=== PATIENT | female | born 1985 | race Hispanic/Latino ===

== ENCOUNTER 2019-02-06 20:05 | Emergency (ER) | payer SELFPAY ==
[2019-02-06] MEDS ORDERED: Ibuprofen 800 MG TAB ONE (21:28)
== END 2019-02-06 21:30 | disposition home or self-care (01) ==
LOC: ERS 20:05
DX: J06.9 Acute upper respiratory infection, unspecified (principal)

== ENCOUNTER 2020-08-10 16:40 | Emergency (ER) | payer SELFPAY ==
[2020-08-10] MEDS ORDERED: Metoclopramide HCl 10 MG/2 ML VIAL ONE (17:06)
[2020-08-10] MEDS ORDERED: diphenhydrAMINE 50 MG/ML VIAL ONE (17:06)
[2020-08-10] MEDS ORDERED: Metoclopramide 10 MG/10 ML UDCUP ONE (17:06)
[2020-08-10 21:45] LABS: SARS-CoV-2 PCR by NAA Not Detected (NotDetected)
== END 2020-08-10 20:19 | disposition home or self-care (01) ==
LOC: ERS 16:40
DX: B34.9 Viral infection, unspecified (principal); Z20.822 Contact with and (suspected) exposure to COVID-19
CPT/HCPCS: 70450; 87635; 96365; 96366; 96375; J1200; J2765; U0003; U0005

== ENCOUNTER 2021-10-28 23:41 | Emergency (ER) | payer SELFPAY ==
[2021-10-29] MEDS ORDERED: diphenhydrAMINE 50 MG/ML VIAL ONE (01:53)
[2021-10-29] MEDS ORDERED: Ketorolac Tromethamine 30 MG/ML VIAL ONE (01:53)
[2021-10-29] MEDS ORDERED: Metoclopramide HCl 10 MG/2 ML VIAL ONE (01:53)
== END 2021-10-29 03:57 | disposition home or self-care (01) ==
LOC: ERS 23:41
DX: R51.9 Headache, unspecified (principal)
CPT/HCPCS: 96374; 96375; J1200; J1885; J2765